=== PATIENT | male | born 1990 | race Caucasian/White ===

== ENCOUNTER 2020-01-21 08:56 | Outpatient (CLI) | payer OTHER, SELFPAY ==
[2020-01-21 09:34] LABS: Epithelial Count Semen 0-4 /hpf; Pathology Referral Yes; Sperm Immotility 40 % (50-60); Sperm Non-Progressive Motility 0 % (5-10); Sperm Progressive Motility 60 % (31-34); Viscosity Semen High Viscosity
[2020-01-21 10:40] LABS: PH Semen 7.5 (7.0-8.0); Side 1 47; Side 2 52
== END 2020-01-21 08:57 | disposition home or self-care (01) ==
LOC: LAB 08:59
PROVIDERS: Nurse Practitioner Women's Health; Visit Provider Family Medicine
DX: N46.9 Male infertility, unspecified (principal)
CPT/HCPCS: 80500; 89320

== ENCOUNTER 2021-05-24 14:11 | Emergency (ER) | payer OTHER, SELFPAY ==
[2021-05-24 14:19] VITALS: BP 146/84; PULSE 98; RESP 19; TEMP 36.9; O2SAT 98; BMI 33.2
--- NOTE | 2021-05-24 14:24 | XR_ITS ---
WS: [id number] Sacrum and coccyx, 3 views, 05/24/2021 Clinical Data: pain Comparison: None. Findings: No fractures or dislocations are seen. The SI joints and pubic symphysis are unremarkable. No bone de struction or erosion is seen. XR/XR sacrum coccyx min 2V [id number] Impression: Negative sacrum and coccyx.
--- NOTE | 2021-05-24 14:27 | ED_ITS ---
HPI - General Adult General: Chief complaint: General Medical Stated complaint: TAILBONE PAIN Time Seen by Provider: 05/24/21 14:24 History of Present Illness: HPI narrative: Patient said he has been having tailbone area pain since Friday. Went to chiropractor yesterday and had evaluation and adjustment was done and pain seems worse this morning. Patient denies any history of cyst drainage redness or warmth in that area. Denies any injury or heavy lifting type injuries. Patient has not had fever bowel or bladder problems. MD complaint: Tailbone pain Onset (ago): day(s) Radiation: back Severity: moderate Severity scale (1-10): 4 Quality: aching Pain Consistency: constant Exacerbating factors: movement Associated symptoms: Reports no associated symptoms; Deny chest pain, headache(s), rash or vomiting Review of Systems Const: Denies: fever(s), chills or body aches Eyes: Denies: eye discharge ENMT: Denies: throat pain, oral sores or nasal congestion Card: Denies: chest pain or dyspnea on exertion Resp: Reports: non-productive cough; Denies: wheezing or stridor GI: Denies: vomiting or diarrhea : Denies: difficulty urinating Musc: Reports: back pain (Tailbone area, worse after just by chiropractor yesterday); Denies: extremity pain Skin/Breast: Denies: rash Neuro: Denies: headache(s) Psych: Denies: anxiety or depression Martin/Lymph: Denies: easy bruising Physical Exam Const: COMMON NORMALS: no acute distress (Child appears very well is playful in no distress) GENERAL APPEARANCE: cooperative HENMT: COMMON NORMALS: normocephalic, external ears normal, EAC's normal, TM's normal bilaterally and Normal external nose present HEAD & SCALP: normal to inspection and normocephalic FACE & SINUS: normal facial exam NOSE: Normal external nose present and No nasal discharge present EXTERNAL EAR: Yes external ears normal EXTERNAL AUDITORY CANAL: EAC's normal TYMPANIC MEMBRANE: TM's normal bilaterally MOUTH: Normal oral and palatal mucosa present THROAT: posterior oropharynx normal Eye: COMMON NORMALS: conjunctivae normal CONJUNCTIVA: Yes conjunctivae normal Lymph: LYMPHATIC: no lymphadenopathy noted Chest: COMMONS NORMALS: normal inspection of the chest Resp: COMMON NORMALS: normal respiratory effort, No retractions, No use of accessory muscles and clear to auscultation bilaterally AUSCULTATION: clear to auscultation bilaterally Cardio: COMMON NORMALS: regular rate and regular rhythm RATE: regular rate RHYTHM: regular rhythm GI: COMMON NORMALS: Normal to inspection, nondistended, normoactive bowel so unds present Back/Pelvis: SACROILIAC JOINTS: Yes SI joints normal SACRUM: no swelling and tenderness COCCYX: no swelling Extremity: COMMON NORMALS: normal to inspection Skin: COMMON NORMALS: no rashes or lesions noted GENERAL SKIN EXAM: no rashes or lesions noted Course Vital Signs: Vital signs: Vital Signs Temperature 98.4 F 05/24/21 14:19 Pulse Rate 86 05/24/21 14:41 Respiratory Rate 16 05/24/21 14:41 Blood Pressure 109/72 05/24/21 14:41 Pulse Oximetry 97 05/24/21 14:41 MDM - General Adult MDM Narrative: Medical decision making narrative: Physical exam negative for any concerning findings besides tenderness over the sacrum and cocci area. Radiology studies were negative. I will treat. With an antibiotic and anti- inflammatory home follow-up with PCP. Is possible could be a pilonidal cyst that in early stages just not sure. Discharge Plan Discharge Patient Disposition: Home Clinical Impression: Coccyx pain Condition: Stable Prescriptions: New clindamycin HCl 300 mg capsule 300 mg PO Q8H 7 Days Qty: 21 RF: 0 Celebrex 100 mg capsule 100 mg PO BID Qty: 20 RF: 0 Discharge Orders: Discharge ED (Routine); Ordered 05/24/21 Ordered By: Al Orellana Discharge Diet: Usual diet Discharge Activity: Increase activity as tolerated Activity Restrictions/Additional Instructions: Follow-up with medical provider as directed. Take medications as prescribed. Return to the ER or your medical provider if condition worsens. Please read and understand discharge instructions. If any questions ask please. Coding Level of Care Code ED Trimmer Helper for Tanisha Fwelpidio Exam Comprehensive
[2021-05-24 14:41] VITALS: BP 109/72; PULSE 86; RESP 16; O2SAT 97
[2021-05-24] MEDS: CELEcoxib 200 mg Capsule 400 MG PO (14:47)
== END 2021-05-24 15:49 | disposition home or self-care (01) ==
PROVIDERS: Emergency Provider Nurse Practitioner Family
DX: M53.3 Sacrococcygeal disorders, not elsewhere classified (principal)
CPT/HCPCS: 72220; 99283

== ENCOUNTER → 2022-06-27 10:23 | Outpatient (BNVA) | payer OTHER, SELFPAY | PROVIDERS: Visit Provider Nurse Practitioner Family | DX: M25.561 Pain in right knee (principal); M25.562 Pain in left knee; Z00.00 Encounter for general adult medical examination without abnormal findings; E66.9 Obesity, unspecified; R53.83 Other fatigue; Z13.1 Encounter for screening for diabetes mellitus; R53.1 Weakness | CPT/HCPCS: 73562; 80053; 80061; 83036; 84403; 84443; 85025 ==

== ENCOUNTER → 2024-01-06 11:52 | Outpatient (BNVA) | payer OTHER, SELFPAY | PROVIDERS: Visit Provider Nurse Practitioner Family | DX: Z00.00 Encounter for general adult medical examination without abnormal findings (principal); E66.9 Obesity, unspecified | CPT/HCPCS: 80053; 80061; 85025 ==

== ENCOUNTER → 2024-02-17 11:41 | Outpatient (BNVA) | payer OTHER, SELFPAY | PROVIDERS: Visit Provider Nurse Practitioner Family | DX: W57.XXXA Bitten or stung by nonvenomous insect and other nonvenomous arthropods, initial encounter (principal); X58.XXXA Exposure to other specified factors, initial encounter | CPT/HCPCS: 86618; 86666; 86757 ==